=== PATIENT | male | born 1950 | race Caucasian/White ===

== ENCOUNTER → 2023-08-29 | Outpatient (CLI) | payer BC ==
[~2023-08-29] MED LIST: DIATRIZOATE MEGLUMINE UR ONE
== END | disposition home or self-care (01) ==
LOC: RAD 09:17
PROVIDERS: ATTEND Urology Pediatric Urology
DX: N32.89 Other specified disorders of bladder (principal); K21.9 Gastro-esophageal reflux disease without esophagitis; N40.3 Nodular prostate with lower urinary tract symptoms; N39.41 Urge incontinence; N41.9 Inflammatory disease of prostate, unspecified; R35.1 Nocturia; N39.44 Nocturnal enuresis
CPT/HCPCS: 74455; 51600; Q9958